=== PATIENT | female | born 1990 | race African-American/Black ===

== ENCOUNTER 2017-05-10 19:25 | Emergency (ER) | payer OTHER ==
[~2017-05-10] VITALS: Ht 170.2 cm; Wt 104.3 kg
[2017-05-10] MEDS ORDERED: NOHOMEMEDICATIONS (19:41)
[2017-05-10] MEDS ORDERED: PROVENTIL HFA6.7 G1 INH (20:40)
[2017-05-10] MEDS ORDERED: TUSSIN COU15 MG/5 M1 PO (20:40)
[2017-05-10 20:55] VITALS: BP 136/80
== END 2017-05-10 20:57 | disposition home or self-care (01) ==
LOC: ER 19:25
DX: J40 Bronchitis, not specified as acute or chronic (principal); F17.210 Nicotine dependence, cigarettes, uncomplicated; F12.10 Cannabis abuse, uncomplicated

== ENCOUNTER 2017-07-30 08:01 | Emergency (ER) | payer OTHER ==
[~2017-07-30] VITALS: Ht 170.2 cm; Wt 99.8 kg
[~2017-07-30 08:01] MED LIST: NOHOMEMEDICATIONS; PROVENTIL HFA6.7 G1 INH; TUSSIN COU15 MG/5 M1 PO
[2017-07-30 08:31] LABS: URINE BILIRUBIN NEGATIVE (Negative); URINE BLOOD NEGATIVE (Negative); URINE COLOR YELLOW; URINE GLUCOSE-RANDOM* NEGATIVE (Negative); URINE KETONES NEGATIVE (Negative); URINE NITRITE NEGATIVE (Negative); URINE PROTEIN (DIPSTICK) NEGATIVE (Negative); URINE SPECIFIC GRAVITY 1.015 (1.003-1.035); URINE UROBILINOGEN 0.2 E.U./dl (0.2-1.0)
[2017-07-30 08:41] LABS: HEMATOCRIT 42.4 % (37.0-47.0); HEMOGLOBIN 14.1 gm/dL (12.0-15.0); MCH 27.5 pg (26.0-34.0); MCHC 33.3 g/dL (28.0-37.0); MCV 82.4 fL (80.0-100.0); RBC 5.14 mil/uL (4.20-5.00); RDW 14.5 % (10.5-14.5); WBC 6.5 thou/uL (4.0-11.0)
[2017-07-30 08:52] LABS: CREATININE 0.8 mg/dL (0.6-1.0); POTASSIUM 3.9 mmol/L (3.5-5.1)
[2017-07-30 10:45] VITALS: BP 146/55
== END 2017-07-30 10:48 | disposition home or self-care (01) ==
LOC: ER 08:01
PROVIDERS: Emergency Medicine
DX: O26.891 Other specified pregnancy related conditions, first trimester (principal); R10.30 Lower abdominal pain, unspecified; F17.210 Nicotine dependence, cigarettes, uncomplicated; Z3A.00 Weeks of gestation of pregnancy not specified

== ENCOUNTER 2020-01-28 10:34 | Emergency (ER) | payer OTHER ==
[~2020-01-28] VITALS: Ht 170.2 cm; Wt 93.0 kg
[~2020-01-28 10:34] MED LIST changes: +KEFLEX500 M1 PO; +PRENATABS RX T1 EAC1 PO
[2020-01-28] MEDS ORDERED: KEFLEX500 M1 PO (10:53)
[2020-01-28 11:01] VITALS: BP 153/84
== END 2020-01-28 11:05 | disposition home or self-care (01) ==
LOC: ER 10:34
DX: L03.115 Cellulitis of right lower limb (principal); F17.210 Nicotine dependence, cigarettes, uncomplicated; Z79.899 Other long term (current) drug therapy

== ENCOUNTER 2020-01-31 09:03 | Emergency (ER) | payer OTHER ==
[~2020-01-31] VITALS: Ht 170.2 cm; Wt 93.0 kg
[2020-01-31 09:05] VITALS: BP 115/85
[2020-01-31] MEDS ORDERED: IBUPROFEN 800800 M1 PO (09:49)
[2020-01-31] MEDS ORDERED: BACTRIM DS TAB1 EACH PO (09:49)
[2020-01-31] MEDS ORDERED: SENNA-DOCUSATE1 EAC1 PO (09:49)
[2020-01-31] MEDS ORDERED: NORCO 5-325 TA1 EAC1 PO (09:49)
== END 2020-01-31 10:03 | disposition home or self-care (01) ==
LOC: ER 09:03
DX: L02.415 Cutaneous abscess of right lower limb (principal); Z79.2 Long term (current) use of antibiotics; Z87.891 Personal history of nicotine dependence

== ENCOUNTER 2020-02-04 23:17 | Inpatient (IN) | payer OTHER ==
[~2020-02-04] VITALS: Ht 170.2 cm; Wt 85.6 kg
[~2020-02-04 23:17] MED LIST changes: +BACTRIM DS TAB1 EACH PO; +IBUPROFEN 800800 M1 PO; +NORCO 5-325 TA1 EAC1 PO; +SENNA-DOCUSATE1 EAC1 PO
[2020-02-05] VITALS (7 sets, daily range): BP systolic 110–134; BP diastolic 48–78
[2020-02-05 01:19] LABS: ABSOLUTE NEUTROPHILS 2.8 thou/uL (1.4-8.2); BASOPHILS 2.3 % (0.0-2.0); EOSINOPHILS 4.8 % (0.0-3.0); HEMATOCRIT 34.2 % (37.0-47.0); HEMOGLOBIN 11.4 gm/dL (12.0-15.0); LYMPHOCYTES 38.6 % (24.0-44.0); MCH 27.2 pg (26.0-34.0); MCHC 33.4 g/dL (28.0-37.0); MCV 81.6 fL (80.0-100.0); MONOCYTES 9.9 % (1.0-8.0); PLATELET COUNT 376 thou/uL (150-400); POLYS 44.4 % (36.0-66.0); RDW 14.2 % (10.5-14.5); WBC 6.4 thou/uL (4.0-11.0)
[2020-02-05 01:25] LABS: CALCIUM 8.2 mg/dL (8.5-10.1); CREATININE 0.9 mg/dL (0.6-1.0); POTASSIUM 4.3 mmol/L (3.5-5.1)
[2020-02-05 01:31] LABS: TOTAL BILIRUBIN 0.1 mg/dL (<0.1-1.0); TOTAL PROTEIN 6.9 g/dL (6.4-8.2)
--- NOTE | 2020-02-05 05:31 | NUR ---
REPORT RECIEVED, PT FROM THE ER. A&OX4 FROM HOME WITH RT LOWER EXT CELLULITIS PICTURE TAKEN. IV INTACT AND VANCO INFUISING. PAIN MEDS GIVEN FOR PAIN. PT ORIENTED TO THE UNIT. CALL LIGHT IN REACH AND VITALS STABLE WILL CONT WITH POC TILL EOS.
--- NOTE | 2020-02-05 15:35 | NUR ---
PT ADMITTED RELATED TO RT LEG CELLULITIS. CM REVIEWED CHART AND SPOKE WITH CARE TEAM. CM CALLED AND SPOKE WITH PT IN THE ROOM THIS DAY. PT APPEARES TO BE A&O X4. CM ROLE INTORDUCED. PT INDICATED SHE LIVES IN A HOUSE WITH HER MOTHER WITH 7 STEPS TO ENTER AND A FLIGHT TO THE BASEMENT WHERE SHE STAYS. PT DOESN'T HAVE A PCP IS INTERESTED IN [facility] PACKET ONE WAS SENT TO UNIT FOR THEM TO PROVIDE TO HER. PT INDICATED SHE ANTIPATES RETURNING HOME ONCE MEDICALLY STABLE. PT INDICATED SHE SHOULD BE ABLE TO FILL ANY SCRIPTS SHE WILL NEED UPON DC. PT WILL ALSO LIKELY NEED SOME WC SUPPLIES SHE HAS NO INSURANCE.
--- NOTE | 2020-02-05 17:41 | HC ---
[facility] [place] [address] CONSULTATION Name: REILLY KIRKLAND Room #: 442-P ADM IN M.R.#: [id number] Admission: 02/05/20 Attend Phys: Ginger Herzog Discharge: Date of : 88 Report #: [id number] THIS REPORT FOR: cc: YOLANDA - No family physician/PCP YOLANDA - No family physician/PCP Simon Keane MD ~ CC: [facility] physician/PCP Ginger Herzog DATE OF SERVICE: 02/05/2020 CHIEF COMPLAINT: Abscess of the right lower leg. HISTORY OF PRESENT ILLNESS: This is a 29-year-old female patient who was seen in the Emergency Department several times for an abscess on her right lower extremity. She has undergone outpatient incision and drainage and was placed on antibiotics. She has come back for additional evaluation with increased pain, swelling, and redness. She has been seen by General Surgery with plans for a bedside debridement and I have been asked to see her with regard to wound care. The patient is somewhat lethargic in bed. She had to be awakened and had a hard time staying awake to answer most questions. PAST MEDICAL HISTORY: Unremarkable for significant previous illness or injury. She certainly a daily smoker and has some past history of recreational drug use. MEDICATIONS: Include Keflex and vitamins, hydrocodone, Bactrim. ALLERGIES: No known drug allergies. SOCIAL HISTORY: Positive for daily smoking. Denies alcohol use. Denies current recreational drug use. FAMILY HISTORY: Noncontributory. REVIEW OF SYSTEMS: CONSTITUTIONAL: The patient denies fever, chills or weight loss. NEUROLOGICAL: The patient denies focal weakness, numbness or tingling. EYES: The patient denies visual changes, redness, or drainage. ENT: The patient denies earache, nasal drainage, sore throat. CARDIOVASCULAR: The patient denies chest pain, palpitations or diaphoresis. PULMONARY: The patient denies cough or shortness of breath. GASTROINTESTINAL: The patient denies nausea, vomiting, diarrhea or abdominal pain. ORTHOPEDIC: The patient complains of significant pain involving her right lower extremity. Other systems in a 14-point review of systems are negative. [address] [address] CONSULTATION Name: REILLY KIRKLAND Flip Room #: 442-P [facility] IN [facility].#: [id number] Admission: 02/05/20 Attend Phys: Ginger Herzog Discharge: Date of : 88 Report #: [id number] PHYSICAL EXAMINATION: VITAL SIGNS: At this time include temperature 37.1, pulse 51, respiratory rate 17, and blood pressure 110/49. GENERAL: This is a somewhat lethargic or somnolent individual, appears to be in minimal distress. HEENT: Head normocephalic. Nose and throat clear. NECK: Supple. LUNGS: Clear. ABDOMEN: Soft. Bowel sounds present. EXTREMITIES: Lower extremities demonstrate palpable distal pulses. She has an area of abscess with a small incision noted in the right medial lower leg. The area is quite tender. There is some surrounding erythema. CLINICAL IMPRESSION: 1. An abscess to the right lower extremity. 2. Surrounding cellulitis, right lower extremity. Etiology is indeterminate. LABORATORY STUDIES: Sodium 135, potassium 4.3, chloride 102, BUN 10, creatinine 0.9. White blood cell count 6.4 with a hemoglobin of 11.4. RECOMMENDATIONS: At this point in time, the patient will have a bedside incision and drainage by Dr. Alcala, General Surgery. At this point in time, a dry dressing would be appropriate until after the procedure, likely there will be some packing. We can follow her for wound care after the procedure: The patient is agreeable to current plan of care and has drifted back to sleep. <ELECTRONICALLY SIGNED> By: Simon Keane MD 02/05/20 1741 1623 1655 Simon Keane MD /nt
--- NOTE | 2020-02-05 17:54 | NUR ---
ASSUMED CARE OF THE PT AT 0700. PT IS AMBULATORY AND IS NOT A FALL RISK. PAIN CONTROLLED BY PAIN MEDS, SEE EMAR. PT DOES NOT UNDERSTAND WHY SHE IS A BS, REFUSED PM ACCUCHECK. PROCEDURE DONE AT BEDSIDE, BLOOD CULTURES SENT TO THE LAB. PT REFUSED SCD'S. R AC INFILTRATED/ REMOVED, R FOREAEM IV DRY AND INTACT. CALL LIGHT WITHIN REACH AND BED IN THE LOWEST POSITION. PT IS NOT A Q2 TURN. WILL CONTINUE TO MONITOR THE PT.
--- NOTE | 2020-02-06 04:59 | NUR ---
PT AOX4. PT REPORTS PAIN IN RLE. PT HAS FENTANYL PRN Q6HR, NORCO PRN Q4HR, AND TORADOL PRN Q8HR X3 DOSES. PT REPORTS CURRENT PAIN MANAGEMENT INEFFECTIVE. NOTIFIED PLASTIC ROLLER CARBON BRUSH MAKER, RECEIVED ORDERS TO D/C FENTANYL ORDER AND START MORPHINE 4MG PRN Q4HR X3 DOSES. PT RLE NOTED TO BE WARM, EDEMATOUS, AND TENDER TO TOUCH. RLE DRESSING INTACT, NO DRAINAGE NOTED. ENCOURAGED PT TO ELEVATE RLE, PT RELUCTANT DUE TO PAIN. PROVIDED EDUCATION TO PT IN REGARDS TO CIRCULATION IMPROVEMENT AND INTERVENTIONS TO MANAGE INFLAMMATION, PT RECEPTIVE. PT NOTED TO HAVE RLE ELEVATED USING WEDGE PILLOW. PT REFUSING SCDS, WILLING TO TAKE SQ LOVENOX AND REPORTS SHE WALKS. ENCOURAGED FREQUENT REPOSITIONING, PT INDEPENDENT WITH AMBULATION AND POSITION CHANGES. PT CONTINUES TO REFUSE ACHS BLOOD GLUCOSE MONITORING AND INSULIN SHE REPORTS 'I DONT DO THAT AT HOME...I DONT HAVE DIABETES'. PROVIDED REASSURANCE TO PT IN REGARDS TO PLAN OF CARE AND IMPROVING CURRENT HEALTH STATUS. ENCOURAGED PT TO NOTIFY STAFF FOR ALL NEEDS. CALL LIGHT WITHIN REACH, BED ALARM ON, BED IN LOWEST POSITION. WILL CONTINUE TO MONITOR.
[2020-02-06 07:57] VITALS: BP 117/63
[2020-02-06] MEDS ORDERED: PERCOCET 5-3251 EACH PO (09:34)
--- NOTE | 2020-02-06 13:54 | NUR ---
PT HAS ORDER FOR IDOFORM BID TO RIGHT LE PT HAD DEBRIDEMENT 02/05/20. EDUCATED PATIENT ON TX SHE STATES IS CONFIDENT CAN DO. WOUND CARE PICTURE TAKEN. IN CHART.
[2020-02-06 13:58] VITALS: BP 117/63
[2020-02-06 14:44] VITALS: BP 110/54
[2020-02-06 14:46] VITALS: BP 117/63
== END 2020-02-06 14:49 | disposition home or self-care (01) | DRG 603 ==
LOC: ER 23:17 → EROBS 02-05 01:56 → 4S 02-05 02:44
PROVIDERS: Emergency Medicine; ADMIT Hospitalist
PROC: 0H9KXZZ Drainage of Right Lower Leg Skin, External Approach (ICD-10-PCS; principal; 2020-02-05)
DX: L02.415 Cutaneous abscess of right lower limb (principal); E44.1 Mild protein-calorie malnutrition; L03.115 Cellulitis of right lower limb; F17.210 Nicotine dependence, cigarettes, uncomplicated; Z68.29 Body mass index [BMI] 29.0-29.9, adult; Z79.899 Other long term (current) drug therapy
CPT/HCPCS: 10195

== ENCOUNTER 2020-06-07 15:50 | Emergency (ER) | payer OTHER ==
[~2020-06-07] VITALS: Ht 167.6 cm; Wt 86.2 kg
[~2020-06-07 15:50] MED LIST changes: +PERCOCET 5-3251 EACH PO
[2020-06-07] MEDS ORDERED: ENBRACE HR SOF1 EACH PO (15:56)
[2020-06-07 18:00] VITALS: BP 101/53
--- NOTE | 2020-06-09 20:04 | NUR ---
PATIENT GIVEN COPY OF COVID TEST RESULTS.
== END 2020-06-07 18:00 | disposition home or self-care (01) ==
LOC: ER 15:50
DX: O30.001 Twin pregnancy, unspecified number of placenta and unspecified number of amniotic sacs, first trimester (principal); O98.519 Other viral diseases complicating pregnancy, unspecified trimester; J06.9 Acute upper respiratory infection, unspecified; Z20.828 Contact with and (suspected) exposure to other viral communicable diseases; R10.30 Lower abdominal pain, unspecified; Z3A.01 Less than 8 weeks gestation of pregnancy; Z87.891 Personal history of nicotine dependence; Z79.899 Other long term (current) drug therapy

== ENCOUNTER 2020-11-11 12:25 | Inpatient (IN) | payer OTHER ==
[~2020-11-11] VITALS: Ht 152.4 cm; Wt 81.8 kg
[2020-11-11] VITALS (23 sets, daily range): BP systolic 134–182; BP diastolic 79–108
[~2020-11-11 12:25] MED LIST changes: +ENBRACE HR SOF1 EACH PO
--- NOTE | 2020-11-11 12:40 | NUR ---
PT TAKEN TO CHISEL MORTISER OPERATOR BY RN AND DR RIVERA
[2020-11-11 18:02] LABS: ABSOLUTE NEUTROPHILS 11.6 thou/uL (1.4-8.2); BASOPHILS 0.5 % (0.0-2.0); EOSINOPHILS 0.1 % (0.0-3.0); HEMATOCRIT 37.3 % (37.0-47.0); LYMPHOCYTES 11.1 % (24.0-44.0); MCV 74.8 fL (80.0-100.0); MONOCYTES 2.9 % (1.0-8.0); PLATELET COUNT 359 thou/uL (150-400); POLYS 85.4 % (36.0-66.0); RBC 4.99 mil/uL (4.20-5.00); RDW 16.7 % (10.5-14.5); WBC 13.5 thou/uL (4.0-11.0)
[2020-11-11 18:14] LABS: CALCIUM 8.9 mg/dL (8.5-10.1); POTASSIUM 3.9 mmol/L (3.5-5.1)
[2020-11-11 18:19] LABS: CHOLESTEROL 234 mg/dL (<200); HDL CHOLESTEROL 46 mg/dL (>40); LDL CHOLESTEROL 173 mg/dL (<100); TC:HDL 5.1 Ratio (Not establshd); TRIGLYCERIDE 79 mg/dL (<150); VLDL 16 mg/dL (<40)
[2020-11-11 18:21] LABS: ALBUMIN 3.9 g/dL (3.4-5.0); TOTAL BILIRUBIN 0.4 mg/dL (0.2-1.0); TOTAL PROTEIN 7.7 g/dL (6.4-8.2)
[2020-11-11 18:23] LABS: TROPONIN-I 29.25 ng/mL (<0.06)
--- NOTE | 2020-11-11 20:38 | NUR ---
PT ARRIVAL FROM FOOD SERVICE UTILITY WORKER TO ICU AT 1515. PT ACCOMPANIED BY NURSING STAFF. PT ON ROOM AIR. PT ON INTEGRILIN GTT AT 2MCG/KG/MIN, CARDIZEM AT 5MG/ML AND NS AT 100ML/HR. PT HAVE TWO PERIPHERAL IVS ON ARRIVAL TO ICU. ONE AT LEFT ANTECUBITAL AND NEXT ONE ON RIGHT HAND. PT ALERT AND ORIENTED x3. PT FRIEND GARY UPDATED ON PT CONDITION. PT HAD RIGHT GROIN SITE ACCESS FOR CATH PROCEDURE. DRESSING LOOKS CLEAN, DRY AND INTACT. NO HEMATOMA PRESENT. CONTINUE TO MONITOR.
[2020-11-12] VITALS (25 sets, daily range): BP systolic 92–155; BP diastolic 51–92
[2020-11-12 03:06] LABS: AMP/METHAMP Negative (Negative); BARBITURATES Negative (Negative); BENZODIAZEPINES POSITIVE (Negative); COCAINE POSITIVE (Negative); METHADONE Negative (Negative); OPIATES POSITIVE (Negative); PCP Negative (Negative)
[2020-11-12 05:56] LABS: HEMATOCRIT 36.7 % (37.0-47.0); HEMOGLOBIN 11.6 gm/dL (12.0-15.0); MCH 23.6 pg (26.0-34.0); MCHC 31.5 g/dL (28.0-37.0); MCV 74.9 fL (80.0-100.0); RBC 4.9 mil/uL (4.20-5.00); RDW 16.5 % (10.5-14.5); WBC 9.3 thou/uL (4.0-11.0)
[2020-11-12 06:02] LABS: CALCIUM 8.7 mg/dL (8.5-10.1); POTASSIUM 3.3 mmol/L (3.5-5.1)
--- NOTE | 2020-11-12 10:52 | CATHLAB ---
[facility] [place] [address] INVASIVE PROCEDURE REPORT Name: REILLY KIRKLAND Room #: 249-P ADM IN M.R.#: [id number] Admission: 11/11/20 Attend Phys: Bronwyn Mcclellan MD Discharge: Date of : 88 Report #: [id number] THIS REPORT FOR: cc: FAM - No family physician/PCP FAM - No family physician/PCP Martín Kilpatrick MD ~ ADDENDUM APPROVED REPORT Study performed: 11/11/2020 12:49:08 Patient Details The patient is a 30 year-old female Event Personnel Martín Kilpatrick Movers, Maeve Patton RN RN, Shanon Riley RTR Nacho Howard Sherra RTR Monitor Procedures Performed Art Access - R femoral artery* Left Heart Cath w/or w/o Coronaries [id number] [facility] Atherectomy w/wo Plasty Sgl LAD [id number] ATHSINGLE PTCA Single Vessel LAD [id number] PCISINGLE Hemostasis w/ Mynx Indication STEMI (>0 to less than or equal to 6 hours), Dyspnea, Chest pain Risk Factors Hypercholesterolemia, Hypertension, Tobacco History (), The patient has a history of drug abuse, admits to using cocaine prior to onset of symptoms. Admission/Lab Medications/Medications given during procedure Aspirin, Glycoprotein IllbIlla Inhibitors, Thrombin Inhibitors, Heparin Unfract. Procedure Narrative The Right Groin^ was infiltrated with 1% Lidocaine subcutaneous anesthesia. A PINNACLE 6FR Sheath #[id number] sheath was inserted into the RFA^. Coronary angiography was performed using coronary diagnostic catheters. The right coronary system was accessed and visualized with a JR4 catheter. The left coronary system was accessed and visualized with a JL4 catheter. The left ventricle was accessed and visualized with a PIGTAIL catheter. Left ventriculogram was [facility] [address] [place] [address] INVASIVE PROCEDURE REPORT Name: REILLY KIRKLAND Flip Room #: 249-P [facility] IN [facility].#: [id number] Admission: 11/11/20 Attend Phys: Bronwyn Mcclellan MD Discharge: Date of : 88 Report #: [id number] performed in 30 degree projection. Pre-demployment femoral angiogram was performed . Closure device was deployed with a 6 Fr MYNXGRIP 6/7F #[id number]. The patient tolerated the procedure well and there were no complications associated with the procedure. There was no hematoma. Intraoperative Conscious Sedation Sedation start time: 1250 Case end Time: 1417 Fentanyl 100 mcg Versed 2 mg Fluoro Time: 14.47 minutes Dose: DAP 31050.80 cGycm2 1455 mGy Contrast Type and Amount: Visipaque 285 ml Coronary Angiography The patient's coronary anatomy is right dominant. Diagnostic Cath Left Main The left main artery is a large-caliber vessel, patent with no flow-limiting lesions. LAD There is a severe, discrete lesion with thrombus in the proximal LAD segment, at the bifurcation of the first diagonal artery. There is a total occlusion in the mid segment of the LAD. Diagonal 1 This is a moderate-sized caliber vessel, patent with no flow-limiting lesions. Circumflex The left circumflex artery supplies 1 moderate-sized OM vessel. OM1 This is a moderate-sized caliber vessel, patent with no flow-limiting lesions. Right Coronary The RCA is a moderate to large caliber vessel, dominant. There is mild disease in the midsegment, 10%. R PDA This is a moderate-sized caliber vessel, patent with no flow-limiting lesions. RPLV This is a moderate-sized caliber vessel, patent with no flow-limiting lesions. Left Ventriculography The left ventricle is mildly dilated in size with Diminished contractility. The left ventricular ejection fraction is estimated to be 30-35%. Left ventricular wall motion abnormalities are present. There is hypokinesis of the mid to apical anterior and distal inferoapical segments. Hemodynamics The aortic pressure is 158/90 mmHg with a mean of 54 mmHg[address] [address] INVASIVE PROCEDURE REPORT Name: REILLY KIRKLAND Room #: 249-P [facility] IN M.R.#: [id number] Admission: 11/11/20 Attend Phys: Bronwyn Mcclellan MD Discharge: Date of : 88 Report #: [id number] ventricular pressure is 168/16 mmHg with a mean of mmHg. The left ventricular end diastolic pressure is 27 mmHg. PCI Technique Lesion Percutaneous coronary intervention was performed on the mid left anterior descending artery segment. The lesion stenosis prior to intervention was 100% with STEPHENIE 0 flow. A LAUNCHER 6FR EBU 3.5 #[id number] Guide Catheter was used to engage the ostium. A Luge Wire .014 x 182CM #[id number] Interventional Guidewire was used to cross the lesion. BALLOON DILATION A Balloon catheter TREK RX 2.5 X 12 #[id number] was inserted and inflated up to 8.00atm for 20seconds. Additional Inflation: 8.00atm for 15seconds. Additional Inflation: 12.00atm for 16seconds. ADDITIONAL INFLATION 12 SANDI FOR 10 SEC COMMENTS A SPRINTER OTW 2.5X 12 MM WAS INSERTED BUT NOT INFLATED AND WAS USED TO ADMINISTER MEDICATION. A luge wire was placed in the distal LAD segment. The total occlusion in the midsegment was dilated with a 2.5 mm balloon. Additional inflations were performed distal to this total occlusion within the LAD. There was partial improvement in flow into the LAD. Then a thrombectomy catheter was used in the mid/distal segment of the LAD. In addition, the thrombectomy catheter was used at the site of the proximal lesion. Injections at this point still revealed slow flow in the mid/distal LAD segment. Most likely this portion of the vessel was filled with thrombus and there was diminished flow in the microcirculation. At this time, a 2.5 mm qjgu-qxv-sfnf balloon was placed in the mid LAD segment, the wire was then removed. Aliquots of intracoronary diltiazem and adenosine was injected through the OTW balloon into the distal LAD segment. There was an improvement in blood flow down into the distal LAD segment. There are filling defects in the more distal LAD segment, the vessel was deemed to be too small to introduce a thrombectomy catheter. During the procedure, the patient was treated with heparin bolus, Integrilin bolus and drip and Angiomax. Final angiography revealed a decrease in size of the proximal lesion and improved blood flow into the distal LAD segment. The plan is to continue with intravenous Integrilin infusion for a few days and have the patient return for repeat cardiac catheterization. PCI Technique Lesion 2 Percutaneous coronary intervention was performed on the proximal left anterior descending artery segment. The lesion stenosis prior to [facility] [address] [place] [address] INVASIVE PROCEDURE REPORT Name: REILLY KIRKLAND Room #: 249-P ADM IN M.R.#: [id number] Admission: 11/11/20 Attend Phys: Bronwyn Mcclellan MD Discharge: Date of : 88 Report #: [id number] intervention was 95% with STEPHENIE 3 flow. Comments A thrombectomy catheter was used at this lesion site with a decrease in the size of the lesion. There was an improvement in blood flow in the mid and distal LAD segment. The plan is to continue with intravenous Integrilin infusion for few days and have the patient return for repeat cardiac catheterization. Conclusion 1. Balloon angioplasty, thrombectomy catheter with extraction, infusion of intracoronary diltiazem and adenosine of the total occlusion in mid LAD segment, with improved blood flow to the distal LAD segment. 2. Severe lesion in the proximal LAD with thrombus, partially improved with thrombectomy extraction. 3. The RCA is a dominant vessel, with mild disease in the midsegment. 4. Moderately severe LV dysfunction. 5. The plan is to continue with intravenous Integrilin infusion for a few days and have the patient return for repeat cardiac catheterization. <ELECTRONICALLY SIGNED> By: Martín Kilpatrick MD 11/12/20 1052 51 1052 Martín Kilpatrick MD /INF
--- NOTE | 2020-11-12 14:08 | NUR ---
PATIENT ORDERED TACO KIM AND WAS INDIGNANT THAT WE WOULDN'T LET HER EAT IT. THREATENED TO LEAVE AMA. SPOKE TO DR. CORONADO AND DR. YING. DR. YING IN ROOM AND DISCUSSED WITH PATIENT THAT COULD BE A CONSEQUENCE OF HER LEAVING. FINALLY DR. YING SAID SHE COULD HAVE TACO KIM BUT PATIENT DIDN'T WANT IT ANYMORE. OFFERED HER THE CHICKEN SANDWICH ON LUNCH TRAY AND SHE ATE JUST THE CHICKEN. VERY EMOTIONAL AND ANXIOUS, NO COMPLAINTS OF CHEST PAIN. 13:20: C/O L UPPER ARM PAIN, 7/10. VERY ANXIOUS. MORPHINE 1MG GIVEN AND ATIVAN 0.25MG WITH GOOD RESULTS. EKG STRIP PRINTED WITH NO CHANGES NOTES.
[2020-11-13] VITALS (18 sets, daily range): BP systolic 95–118; BP diastolic 38–72
--- NOTE | 2020-11-13 02:16 | NUR ---
PT SLEEPING MOST OF NOC. AWAKENED FOR ASSESSMENTS-WHEN AWAKE C/O OF CHEST DISCOMFORT. NO N/V, SKIN WARM/DRY, NO SOB. STATES IT IS THE SAME STERNAL DISCOMFORT-RATES AN 8. NITRO SL RELIEVED CP EARLIER, AND PT SLEEPING. WHEN AWAKEN FOR 0000 ASSESSMENT, STATES CAN STILL FEEL CP-RATES AN 8. EKG DONE, AND SENT TO DR CORONADO. WILL RECHECK LABS/EKG IN AM. PT SLEEPING NOW. INTERGILIN GTT CONT TO INFUSE. VS WNL
[2020-11-13 03:06] LABS: GLYCOHEMOGLOBIN (HGB A1C) 5.1 % (4.8-5.6)
[2020-11-13 06:03] LABS: HEMATOCRIT 37.2 % (37.0-47.0); HEMOGLOBIN 11.5 gm/dL (12.0-15.0); MCH 23.4 pg (26.0-34.0); MCV 75.5 fL (80.0-100.0); RBC 4.93 mil/uL (4.20-5.00); RDW 16.8 % (10.5-14.5); WBC 6.6 thou/uL (4.0-11.0)
[2020-11-13 06:15] LABS: CREATININE 0.9 mg/dL (0.6-1.0); POTASSIUM 4.3 mmol/L (3.5-5.1)
[2020-11-13 06:20] LABS: TROPONIN-I 20.91 ng/mL (<0.06)
--- NOTE | 2020-11-13 06:38 | NUR ---
PT slept most of noc. No c/o chest discomfort this am. Monitor cont to show SR-no St elevation noted. Troponin this am trending down -20. Intergrilin gtt cont to infuse, Rt groin site soft, Wnl. cont plan of care
--- NOTE | 2020-11-13 08:14 | HC ---
[facility] [place] [address] CONSULTATION Name: REILLY KIRKLAND Room #: 244-P [facility] IN M.R.#: [id number] Admission: 11/11/20 Attend Phys: Bronwyn Mcclellan MD Discharge: Date of : 88 Report #: [id number] THIS REPORT FOR: cc: YOLANDA - Elysia family physician/PCP YOLANDA - No family physician/PCP Martín Kilpatrick MD ~ DATE OF SERVICE: 11/11/2020 INDICATION: Chest pain. HISTORY OF PRESENT ILLNESS: This is a 30-year-old female with recent history of cocaine use, presenting with sudden onset of substernal chest pain. She admits to taking cocaine earlier today. She then developed substernal chest pain, nonradiating, associated with nausea and dyspnea. There is no history of fever, chills, cough or diarrhea. In the ER, she was noted to have ST segment elevation in the precordial leads. She was given aspirin and nitroglycerin without any change in her symptoms. ALLERGIES: None. MEDICATIONS: None. PAST MEDICAL HISTORY: Positive cocaine use. Positive tobacco use. SOCIAL HISTORY: Positive drug use. Smokes less than a pack per day. FAMILY HISTORY: Negative for premature CAD. REVIEW OF SYSTEMS: See HPI. PHYSICAL EXAMINATION: VITAL SIGNS: Blood pressure is 120/70, heart rate is 60 beats per minute. GENERAL APPEARANCE: This is a well-developed, well-nourished female, in distress. HEENT: Normocephalic, atraumatic. Oral mucosa moist. NECK: Supple. LUNGS: Clear to auscultation. CARDIAC: Regular rate and rhythm, S1, S2 positive. ABDOMEN: Soft, nontender. EXTREMITIES: No cyanosis, no edema. DIAGNOSTIC DATA: ECG reveals sinus rhythm with ST elevation in V2-V4 of 2-3 mm, ST elevation of 1-2 mm in the inferolateral leads. ASSESSMENT AND PLAN: [facility] [address] [place] [address] CONSULTATION Name: REILLY KIRKLAND Room #: 244-P [facility] IN [facility]#: [id number] Admission: 11/11/20 Attend Phys: Bronwyn Mcclellna MD Discharge: Date of : 88 Report #: [id number] 1. Acute anterior wall myocardial infarction with recent cocaine use, rule out coronary spasm. She will be taken emergently to the cardiac general labor. 2. Tobacco use, complete smoking cessation will be advised. 3. Drug use/cocaine use, she will also be advised to quit drug use.4 3. Hypercholesterolemia, will need an assessment. <ELECTRONICALLY SIGNED> By: Martín Kilpatrick MD 11/13/20 0814 1254 1314 Martín Kilpatrick MD /nt
--- NOTE | 2020-11-13 18:06 | NUR ---
PATIENT RESTING THROUGH OUT THE DAY. COMPLAINED OF CHEST DISCOMFORT X1 - PRN MORPHINE GIVEN WITH RELIEF. PATIENT ABLE TO SLEEP FOR MOST OF THE DAY. LETS NEEDS BE KNOW. UTILIZES CALL LIGHT. UP TO TOILET TO VOID / STEADY ON FEET. CONTINUOUS INTEGRILIN GTT INFUSING. PLAN FOR PATIENT TO HAVE CATH PROCEDURE DONE IN AM.
[2020-11-14] VITALS (11 sets, daily range): BP systolic 85–120; BP diastolic 43–71
--- NOTE | 2020-11-14 05:05 | NUR ---
ASSUMED PT CARE AT 1900. VSS. PT A&0X4. UPON STEAM GENERATING POWERPLANT MECHANIC NOTICED THAT RIGHT GROIN ACCESS SITE WAS OPEN TO AIR; RN CLEANED SITE AND DRESSED IT WITH GAUZE AND SUREVIEW. PT COMPLAINED OF CHEST PAIN 2X THROUGH THE NOC. MORHINE GIVEN AND PT SLEPT RIGHT AFTER. PT ALSO STATED HAVING ANXIETY ABOUT PROCEDURE TODAY ADN THAT FACT THATS HE HAS TO BURRY HER FATHER THIS SATURDAY. PT RESTED WELL ALL NOC. STILL ON INTEGRILLIN GTT, WILL CONTINUE TO MONITOR.
--- NOTE | 2020-11-14 07:34 | EKG ---
[address] [address] ELECTROCARDIOGRAM REPORT Name: REILLY KIRKLAND Room #: 244-P [facility] IN .R.#: [id number] Admission: 11/11/20 Attend Phys: Bronwyn Mcclellan MD Discharge: Date of : 88 Report #: [id number] [facility] ED Test Date: 2020-11-11 Test Time: 12:27:13 Pat Name: REILLY KIRKLAND Department: Room: 244 Gender: F Day Haul Youth Supervisor: HUBERT : 1990 Requested By: Jenaro Rodriguez Order Number: [id number] MD: George Burns Measurements Intervals [place] Rate: 68 P: 33 MT: 146 QRS: 44 QRSD: 90 T: 69 QT: 434 QTc: 462 Interpretive Statements Sinus rhythm Inferolateral infarct, acute Anterior infarct, acute (LAD) Compared to ECG 02/04/2018 10:55:05 Myocardial infarct finding now present Electronically Signed On 11-14-2020 7:34:33 CONFERENCE ORGANIZER by George Burns [email or web address] <ELECTRONICALLY SIGNED> By: George Burns MD, [facility] 11/14/20 0734 D: 01/1226 26 George Burns MD, FACC /EPI
--- NOTE | 2020-11-14 07:35 | EKG ---
[address] [place] [address] ELECTROCARDIOGRAM REPORT Name: REILLY KIRKLAND Room #: 244-P [facility] IN .R.#: [id number] Admission: 11/11/20 Attend Phys: Bronwyn Mcclellan MD Discharge: Date of : 88 Report #: [id number] [facility] Test Date: 2020-11-11 Test Time: 15:51:17 Pat Name: REILLY KIRKLAND Department: Room: 244 Gender: F Corporate Law Assistant: Gustabo ZEPEDA : 1990 Requested By: Martín Kilpatrick Order Number: [id number] MD: George Burns Measurements Intervals [place] Rate: 90 P: 21 LA: 136 QRS: 23 QRSD: 98 T: 50 QT: 374 QTc: 458 Interpretive Statements Sinus rhythm Extensive anterior infarct, acute (LAD) Compared to ECG 11/11/2020 12:27:13 No significant changes Electronically Signed On 11-14-2020 7:35:36 CABLE RESPOOLER by George Burns [email or web address] <ELECTRONICALLY SIGNED> By: George Burns MD, [facility] 11/14/20 0735 1551 1551 George Burns MD, FACC /EPI
--- NOTE | 2020-11-14 07:40 | EKG ---
[facility] [place] [address] ELECTROCARDIOGRAM REPORT Name: REILLY KIRKLAND Room #: 244-P [facility] IN M.R.#: [id number] Admission: 11/11/20 Attend Phys: Bronwyn Mcclellan MD Discharge: Date of : 88 Report #: [id number] [facility] Test Date: 2020-11-12 Test Time: 09:30:38 Pat Name: REILLY KIRKLAND Department: Room: 244 Gender: F Inflated Pad Buffer: : 1990 Requested By: Martín Kilpatrick Order Number: [id number] MD: George Burns Measurements Intervals [place] Rate: 67 P: 29 SD: 152 QRS: -20 QRSD: 101 T: 20 QT: 485 QTc: 512 Interpretive Statements Sinus rhythm Borderline left axis deviation Probable anteroseptal infarct, recent Lateral leads are also involved Prolonged QT interval Compared to ECG 11/11/2020 15:51:17 Prolonged QT interval now present ST segment elevation is less prominent Electronically Signed On 11-14-2020 7:40:14 PATCH WASHER by George Burns [email or web address] <ELECTRONICALLY SIGNED> By: George Burns MD, [facility] 11/14/2040 9 9 George Burns MD, [facility] /EPI
--- NOTE | 2020-11-14 07:44 | EKG ---
[address] [place] [address] ELECTROCARDIOGRAM REPORT Name: REILLY KIRKLAND Room #: 244- ADM IN M.R.#: [id number] Admission: 11/11/20 Attend Phys: Bronwyn Mcclellan MD Discharge: Date of : 88 Report #: [id number] [facility]ly [facility] Test Date: 2020-11-13 Test Time: 07:33:55 Pat Name: REILLY KIRKLAND Department: Room: 244 Gender: F Anaesthesiologist: YANA : 1990 Requested By: Martín Kilpatrick Order Number: [id number] MD: Bubba Marroquin Measurements Intervals [place] Rate: 59 P: -19 AR: 150 QRS: -24 QRSD: 105 T: 213 QT: 512 QTc: 508 Interpretive Statements Sinus rhythm Borderline left axis deviation Probable anteroseptal infarct, recent Abnormal T, consider ischemia, diffuse leads Lateral leads are also involved Prolonged QT interval Compared to ECG 11/13/2020 00:29:33 T-wave abnormality now present Possible ischemia now present Prolonged QT interval now present Myocardial infarct finding still present Electronically Signed On 11-14-2020 7:44:39 WAREHOUSE MAN by Bubba Marroquin [email or web address] <ELECTRONICALLY SIGNED> By: Bubba Marroquin MD, [facility] 11/14/2044 2 2 Bubba Marroquin MD, [facility] /EPI
--- NOTE | 2020-11-14 07:44 | EKG ---
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 : 1990 Requested By: Martín Kilpatrick Order Number: [id number] MD: George Burns Measurements Intervals [place] Rate: 61 P: -20 IN: 159 QRS: -20 QRSD: 97 T: 200 QT: 490 QTc: 494 Interpretive Statements Sinus rhythm Borderline left axis deviation Probable anteroseptal infarct, recent Lateral leads are also involved Prolonged QT interval Compared to ECG 11/12/2020 09:30:38 No significant change was found Electronically Signed On 11-14-2020 7:44:21 SILVER BUFFER by George Burns [email or web address] <ELECTRONICALLY SIGNED> By: George Burns MD, [facility] 11/14/20 0744 0029 0029 George Burns MD, [facility] /EPI
--- NOTE | 2020-11-14 09:09 | NUR ---
GIVEN AM MEDS WITH SIP OF WATER, PER DIRECTION OF DR. CORONADO. CONSENT SIGNED FOR CARDIAC CATH. PLAN TO HAVE DONE THIS AM. OTHERWISE STABLE AND RESTING COMFORTABLY IN BED WITH NO NEEDS. JUST ANXIOUS TO HAVE PROCEDURE DONE SO SHE CAN EAT.
--- NOTE | 2020-11-14 11:55 | NUR ---
patient transported to computer lab para professional with computer lab para professional rn present
--- NOTE | 2020-11-14 13:47 | CATHLAB ---
[facility] [place] [address] INVASIVE PROCEDURE REPORT Name: REILLY KIRKLAND Room #: 206-P ADM IN M.R.#: [id number] Admission: 11/11/20 Attend Phys: Bronwyn Mcclellan MD Discharge: Date of : [birth year] Report #: [id number] REPORT FOR: cc: FAM - No family physician/PCP FAM - No family physician/PCP Martín Kilpatrick MD ~ APPROVED REPORT Study performed: 11/14/2020 07:42:42 Patient Details Patient Status: In-Patient Room #: The patient is a 30 year-old female Event Personnel Martín Kilpatrick Coat Maker, Shanon Riley RTR Monitor, Carloz Griffith RTR Scrub, Bee Goff RN stationary boiler fireman Performed Art Access - R femoral artery* Coronary Angiography Only [id number] CORANG 89822 Initial Mod Sed Same Phys/QHP Gr5y 879778 15492 Mod Sed Same Phys/QHP Ea [id number] Hemostasis with Manual pressure Indication Chest pain, The patient presented with anterior wall AR (due to cocaine use) on November 08. Please see the cardiac catheterization report for full details regarding the anatomy and angioplasty procedure. Final injections revealed a proximal lesion in the LAD that had improved after thrombectomy. Initially, there was a total occlusion of the mid LAD segment. There was improvement in blood flow down to the distal segment after balloon dilatation, thrombectomy and and infusion of intracoronary diltiazem and adenosine. The patient was started on aspirin, Effient and atorvastatin. She has been maintained on IV Integrilin for several days. Risk Factors Hypercholesterolemia, Tobacco History (), Cocaine use. Previous Procedures/Diagnoses Previous PCI, Previous AR Procedure Narrative The Left Groin^ was infiltrated with 1% Lidocaine subcutaneous [facility] [place] [place] [address] INVASIVE PROCEDURE REPORT Name: REILLY KIRKLAND Room #: 206-P [facility] IN [facility].#: [id number] Admission: 11/11/20 Attend Phys: Bronwyn Mcclellan MD Discharge: Date of : 88 Report #: [id number] anesthesia. A PINNACLE 4FR Sheath #[id number] sheath was inserted into the LFA^. Coronary angiography was performed using coronary diagnostic catheters. The left coronary system was accessed and visualized with a JL4 catheter. Hemostasis was obtained with manual pressure following sheath removal without any complications. The patient tolerated the procedure well and there were no complications associated with the procedure. There was no hematoma. Intraoperative Conscious Sedation Sedation start time: 12:02 Case end Time: 12:39 Fentanyl 50 mcg Versed 1 mg Fluoro Time: 2.20 minutes Dose: DAP 2836.00 cGycm2 796 mGy Contrast Type and Amount: Omnipaque 55 ml Coronary Angiography The patient's coronary anatomy is right dominant. Diagnostic Cath Left Main The left main artery is a large-caliber vessel, patent with no flow-limiting lesions. LAD There is a decrease in the size of the lesion in the proximal segment, resulting in an eccentric, moderate lesion in the proximal LAD. There is an improvement in the blood flow down to the distal LAD. There are filling defects in the distal LAD segment, recommend medical therapy. Diagonal 1 This is a moderate-sized caliber vessel, patent with no flow-limiting lesions. Circumflex The left circumflex artery supplies 1 moderate-sized OM vessel. This system is patent with no flow-limiting lesions. OM1 This is a moderate-sized caliber vessel, patent with no flow-limiting lesions. Right Coronary This vessel was previously visualized. Hemodynamics The aortic pressure is 112/63 mmHg with a mean of 83 mmHg. Conclusion 1. There is a moderate, eccentric lesion in the proximal LAD. 2. There is improved blood flow down to the distal LAD segment after treatment with IV Integrilin for several days. 3. The left circumflex and RCA are patent vessels with no [facility] [address] [place] [address] INVASIVE PROCEDURE REPORT Name: REILLY KIRKLAND Room #: [facility] IN [facility].#: [id number] Admission: 11/11/20 Attend Phys: Bronwyn Mcclellan MD Discharge: Date of : 88 Report #: [id number] flow-limiting lesions. 4. Recommend dual antiplatelet therapy and aggressive risk factor management including cessation of tobacco and cocaine use. <ELECTRONICALLY SIGNED> By: Martín Kilpatrick MD 11/14/20 1347 46 46 Martín Kilpatrick MD /INF
--- NOTE | 2020-11-14 14:27 | NUR ---
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 Patient independent with adls well logging captain mud analysis. She admits with chest pain. Drug screen positive for cocaine. Patient [place]. Copied cards and faxed to Lori in registration to obtain new face sheet. Plan home independent once stable.
--- NOTE | 2020-11-14 17:21 | NUR ---
PT. ARRIVED AT FLOOR AROUND 1320; PT. AOX4; FLAT AFFECT; C/O PAIN OVER L. SIDE GROIN AREA; 07/23; RESTING ON BED; NO GRIMACING; ACETAMINOPHEN PRN ON EMAR; PHYSICIAN ROUNDING; NOTIFIED; ORDERS RECEIVED; IV MORPHINE GIVEN PER EMAR; EDUCATED ABOUT BED REST UNTIL 1540; ST. UNDERSTANDING; EDUCATED ABOUT HOLDING PRESSURE IF COUGHING; ST. UNDERSTANDING; REQUESTING SOMETHING TO DRINKING AND EAT; LUNCH BOX PROVIDED; WATER PROVIDED; SB ON THE MONITOR; UP TO THE RESTHROOM AT 1540; PROVIDED TOWELS AND SOAP TO CLEAN HERSELF UP; CLOSE T0 1700 PT. CALL TO THE NURSE REQUESTING INFORMATION ABOUT VISITOR HOURS; PER TRAVEL CONSULTANT PT. REQUESTED TO LEAVE; GAS LINE REPAIRER ROUNDING ON PT. PT. UPSET; ST "I WANT TO LEAVE RIGHT NOW"; ST. "THE HOURS IT CHANGE EVERYDAY"; EDUCATED ABOUT POSSIBLE CONSEQUENCES OF LEAVING AMA; POC BEING D/C TOMORROW 11/15/2020; ST. "I DO NOT CARE I WANT TO LEAVE RIGHT NOW"; PHYSICIAN NOTIFIED; NO NEW ORDERS; DR. LOPEZ ROUNDING ON PT. AT 1727; SB ON THE MONITOR; R AND L. GROIN SIDE C/D/I; ABLE TO AMBULATE WITHOUT ASSISTANCE; ASSESSMENT CHARGED; FOLLOWING POC; MONITORING; WILL PASS ON REPORT;
[2020-11-15] MEDS ORDERED: PLAVIX 75 MG TA75 MG PO (11:50)
== END 2020-11-14 19:00 | disposition left against medical advice (07) | DRG 981 ==
LOC: ER 12:25 → 2N 13:22 → EROBS 13:22 → ICU 15:34 → 2N 11-14 13:28
PROVIDERS: Emergency Medicine; Internal Medicine Cardiovascular Disease; ADMIT Internal Medicine; ATTEND Internal Medicine
DX: T40.5X1A Poisoning by cocaine, accidental (unintentional), initial encounter (principal); I21.09 ST elevation (STEMI) myocardial infarction involving other coronary artery of anterior wall; I25.10 Atherosclerotic heart disease of native coronary artery without angina pectoris; E78.00 Pure hypercholesterolemia, unspecified; F17.210 Nicotine dependence, cigarettes, uncomplicated; E78.5 Hyperlipidemia, unspecified; E87.6 Hypokalemia; I25.5 Ischemic cardiomyopathy; Z53.29 Procedure and treatment not carried out because of patient's decision for other reasons; Z71.6 Tobacco abuse counseling; Z71.51 Drug abuse counseling and surveillance of drug abuser; Y92.89 Other specified places as the place of occurrence of the external cause
CPT/HCPCS: 10078; 10203

== ENCOUNTER 2021-11-25 20:29 | Emergency (ER) | payer OTHER ==
[~2021-11-25] VITALS: Ht 170.2 cm; Wt 90.7 kg
[~2021-11-25 20:29] MED LIST changes: +PLAVIX 75 MG TA75 MG PO
[2021-11-25 21:14] LABS: ABSOLUTE NEUTROPHILS 3.6 thou/uL (1.4-8.2); EOSINOPHILS 3.8 % (0.0-3.0); HEMATOCRIT 35.3 % (37.0-47.0); LYMPHOCYTES 47.1 % (24.0-44.0); MCH 26.5 pg (26.0-34.0); MCHC 34.1 g/dL (28.0-37.0); MCV 77.7 fL (80.0-100.0); MONOCYTES 6.7 % (1.0-8.0); PLATELET COUNT 316 thou/uL (150-400); POLYS 40.4 % (36.0-66.0); RBC 4.54 mil/uL (4.20-5.00); WBC 8.9 thou/uL (4.0-11.0)
[2021-11-25 21:32] LABS: ALBUMIN 3.6 g/dL (3.4-5.0); CALCIUM 8.3 mg/dL (8.5-10.1); CREATININE 0.7 mg/dL (0.6-1.0); TOTAL BILIRUBIN 0.2 mg/dL (0.2-1.0); TOTAL PROTEIN 7.4 g/dL (6.4-8.2)
[2021-11-25 21:38] LABS: POTASSIUM 4.2 mmol/L (3.5-5.1)
[2021-11-25 23:53] VITALS: BP 110/59
== END 2021-11-25 23:20 | disposition home or self-care (01) ==
LOC: ER 20:29
PROVIDERS: Nurse Practitioner
DX: O03.9 Complete or unspecified spontaneous abortion without complication (principal); F17.210 Nicotine dependence, cigarettes, uncomplicated; Z79.899 Other long term (current) drug therapy